=== PATIENT | female | born 1955 | race Two or more races ===

== ENCOUNTER 2021-04-07 17:09 | Emergency (ER) | payer OTHER ==
[~2021-04-07] VITALS: Ht 154.9 cm; Wt 72.6 kg
--- NOTE | 2021-04-07 18:30 | NUR ---
SPOKE TO CHRISTINA-GENERAL OPERATIONS MANAGER AT [facility]. PT WAS DC YESTERDAY DUE TO BEHAVIORAL ISSUES WITH OTHER RESIDENTS. MD GUDINO
--- NOTE | 2021-04-07 19:05 | NUR ---
RAPID COVID SWAB DONE AND SENT TO LAB
[2021-04-08] MEDS ORDERED: ACETAMINOPHEN ES 500 MG TABLET ONE (02:18)
[2021-04-08] MEDS ORDERED: ACETAMINOPHEN ES 500 MG TABLET PO ONE (02:30)
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
--- NOTE | 2021-04-08 12:07 | NUR ---
"FRANCISCO offered pt. the following resources: Year-round shelters: [facility] [place] [address] [place] [address] ; [facility] [address] [place] [address]; [facility] [address] [facility] [address] Winter Shelters: SPA 2 | [facility] ChurcProvider: [facility] Address: Confidential (call for location ) Population Served: Coed # of Beds: 57 SPA 4 | [facility] Provider: [facility] Address: [address] [facility] [address] # of Beds: 49 Population Served: Coed SPA 6 | [facility] Provider: [facility] Last Address: [address] [facility] [address] # of Beds: 49 Population Served: [place] [facility]ial Provider: Laryr Espinal ORIndira Address: [address] [facility] [address] # of Beds: 20 Population Served: Women RONI Facility Provider: Home at Last Address: [address] [facility] [address] # of Beds: 30 Population Served: Women SPA 8 | [facility] Provider: Ruth of [place] Address: [address] [facility] [address] # of Beds: 65 Population Served: Coed Hygiene: [facility]: [address] [place] ; [place] [facility] [address] [facility] ; [facility] [address] Celso [address] . Food Resources: [place] [facility] at [facility]- [address] [place]; Meet Each Need with Dignity ([facility]) [address] [facility] [place]; [facility] Food [facility] [address] [facility]; [facility] [address] [facility]. Mental Health resources provided: [facility] [address] [place], [place] [address] ; [facility] [address], [place] [address] ; [facility] [address] [place] [address] ; [facility] [address] [place], [place] [id number] Healthcare Clinics: [facility] [address] [facility], [address] [place]. [place] ; [facility] [address] [place] [address]; [facility] [address] [place] [address] [phone]) [phone] Counseling--Outpatient [facility] [address], [place] [address] (Specializes in in-depth psychotherapy for emotional distress: anxiety, depression, interpersonal conflicts, life transitions, childhood abuse) [facility] [address] [place] [address] (Assist with solving problem marital difficulties, separation & divorce, aging parents, & grief, chronic & terminal illness) [facility] [address] [place] [address] (Deal with loss & grief, anxiety, marital difficulties) Homebound/Mental Health Services [address] [facility], [address] [place] [address] (Provide in-home mental services to people who are incapable of leaving their homes) [facility] Elder[facility] Senior Service/Resource Center [address] [place] [address] [facility] [address] [facility]. [place], [place] [id number] PSYCHIATRIC OUTPATIENT SERVICES [facility] Partial Hospitalization and Intensive Outpatient Program (Managed Care and [place] Only)[address] [facility] [phone] [facility] Partial Hospitalization and Outpatient [address] [place], [place] [phone] CELSO HENRIQUE [facility] [address] [place], [place] [phone] [facility] Partial Hospitalization and Outpatient Wmhomja[address] Em[address] [facility] Celso Greene, [phone] Substance Abuse resources provided included: [facility] Substance Abuse Self-Helpline ([facility]) ; [facility] [address] [facility] [place] [address] ; [facility] [address] [facility] [address] ; [facility] [address] [facility] [phone] ; [facility]ically [facility] [address] [facility] [phone] ; [facility] [address] [facility] [phone] ; [facility] [address] [facility] [phone] ; [facility] Substance Abuse Helpline([facility])-[facility] ; [facility] ; [facility] [place]; [facility] [place]; [facility] [place]; [facility] Celso Castillohenrique; [facility]; [facility]; [facility] Wilfred; [facility]. Peter Hawley; Alcoholics Anonymous -sfv; Gosia ; Marijuana Anonymous -SFV; Narcotics Anonymous www.[email or web address];"
--- NOTE | 2021-04-08 14:53 | NUR ---
THERAPY TECHNICIAN AT PT'S BEDSIDE
--- NOTE | 2021-04-08 16:04 | NUR ---
Per [facility], labs are needed for pending asmission. Nursing to fax to [phone]
--- NOTE | 2021-04-08 16:30 | NUR ---
URINE COLLECTED AND SENT TO THE LAB
--- NOTE | 2021-04-08 16:42 | NUR ---
FAMILY MANAGER AT PT'S BEDSIDE
[2021-04-08 16:58] LABS: BASOPHILS # (AUTO) 0.1 K/uL (0.0-0.2); BASOPHILS % (AUTO) 1.3 % (0.0-2.0); EOSINOPHILS % (AUTO) 2.8 % (0.0-6.0); HEMATOCRIT 38 % (33-45); HEMOGLOBIN 12.1 g/dL (11.5-14.8); LYMPHOCYTES # (AUTO) 2.6 K/uL (0.8-4.8); LYMPHOCYTES % (AUTO) 48.6 % (20.0-44.0); MEAN CORPUSCULAR HGB CONC 32 g/dl (31.0-36.0); MEAN CORPUSCULAR VOLUME 71 fL (82-100); MONOCYTES # (AUTO) 0.5 K/uL (0.1-1.30); MONOCYTES % (AUTO) 8.6 % (2.0-12.0); NEUTROPHILS % (AUTO) 38.7 % (43.0-81.0); PLATELET COUNT (AUTO) 238 K/uL (150-450); RED BLOOD CELL COUNT(AUTO) 5.43 MIL/uL (4.0-5.2); WHITE BLOOD COUNT (AUTO) 5.3 K/uL (4.3-11.0)
[2021-04-08 17:16] LABS: CALCIUM, SERUM 9.4 mg/dL (8.5-10.1); CARBON DIOXIDE 29 mmol/L (21-32); CHLORIDE 99 mmol/L (98-107); CREATININE 0.7 mg/dL (0.6-1.3); GLUCOSE 130 mg/dL (74-106); POTASSIUM 3.8 mmol/L (3.5-5.1); SODIUM SERUM 136 mmol/L (136-145); UREA NITROGEN, BLOOD 19 mg/dL (7-18)
[2021-04-08 17:37] LABS: BILIRUBIN,URINE NEGATIVE (NEGATIVE); COLOR,URINE YELLOW (YELLOW); LEUKOCYTE ESTERASE ,URINE LARGE (NEGATIVE); NITRITE, URINE NEGATIVE (NEGATIVE); PH,URINE 5.5 (5.0-8.0); PROTEIN,URINE NEGATIVE (NEGATIVE); UGLUCOSE NEGATIVE (NEGATIVE); UROBILINOGEN,URINE 0.2 EU/dL (0.2)
[2021-04-08 18:16] LABS: BACTERIA,URINE 4+ /HPF (None Seen); WBC,URINE 21-50 /HPF (0-3)
[2021-04-08 18:54] LABS: ALANINE AMINOTRANSFERASE 27 U/L (12-78); ALBUMIN 3.7 g/dL (3.4-5.0); ALKALINE PHOSPHATASE 101 U/L (46-116); ASPARTATE AMINOTRANSFERASE 20 U/L (15-37); BILIRUBIN,DIRECT 0.2 mg/dL (0.0-0.2); BILIRUBIN,TOTAL 0.8 mg/dL (0.2-1.0); TOTAL PROTEIN, SERUM 8.2 g/dL (6.4-8.2)
[2021-04-08 19:19] LABS: ACETAMINOPHEN < 2 ug/ml (10-30); ALCOHOL, BLOOD < 3 mg/dL (0-0)
[2021-04-08] MEDS ORDERED: CEPHALEXIN MONOHYDRATE 500 MG CAPSULE PO ONE ×2 (19:30→19:48)
[2021-04-08 20:06] LABS: EOSINOPHILS % (MANUAL) 1 % (0-4); LYMPHOCYTES % (MANUAL) 44 % (16-48); MONOCYTES % (MANUAL) 8 % (0-11.0); NEUTROPHILS % (MANUAL) 47 (42-76)
--- NOTE | 2021-04-09 00:25 | NUR ---
Patient is resting comfortably in bed with eyes closed. Easily aroused. VSS
--- NOTE | 2021-04-09 04:45 | NUR ---
Accepted at [facility] Ramona under Dr. Knutson. [phone] for report
--- NOTE | 2021-04-09 04:48 | NUR ---
Report given to BEVERLY Hood for zahida at the [facility]
--- NOTE | 2021-04-09 07:31 | NUR ---
REPORT GIVEN TO [employer]AL MOCKUP MAKER GOING TO [facility] NATALIE.
[2021-04-09 07:32] VITALS: BP 117/58
== END 2021-04-09 07:33 ==
LOC: ER 17:11
DX: F32.A Depression, unspecified (principal); G89.21 Chronic pain due to trauma; M25.512 Pain in left shoulder; R45.851 Suicidal ideations; Z59.01 Sheltered homelessness; N39.0 Urinary tract infection, site not specified; Z20.822 Contact with and (suspected) exposure to COVID-19
CPT/HCPCS: 36415; 80048; 80076; 80143; 80307; 80320; 81001; 85007; 85025; 87086; 87426; 99285; C9803; G0480

== ENCOUNTER 2021-05-31 22:52 | Emergency (ER) | payer OTHER ==
[~2021-05-31] VITALS: Ht 154.9 cm; Wt 72.6 kg
--- NOTE | 2021-05-31 23:08 | NUR ---
ARAM FROM A [facility]AS STATION. TO ER BED 14. AAOX4. NOT IN RESP DISTRESS, BREATHING EVEN AND UNLABORED. TALKING IN FULL SENTENCES. BROUGHT IN FOR LIP AND TONGUE SWELLING STARTED THIS MORNING WHICH IS INTERMITENT PER PT. UPON TRIAGE NO NOTED SWELLING. PT SATTING @ 100%. PT STATES TAHT SHE IS TAKING SOME MEDS BUT DOES NOT KNOW WHICH MEDICATIONS SHE IS TAKING. PT WAS DISCHARGED FROM A SNF. AWAITING MD FOR EVAL.
[2021-05-31] MEDS ORDERED: diphenhydrAMINE HCL 25 MG CAPSULE ONE (23:43)
[2021-05-31] MEDS ORDERED: FAMOTIDINE (20 MG) 20 MG TABLET ONE (23:43)
[2021-05-31] MEDS ORDERED: ONDANSETRON 4 MG TAB.RAPDIS ONE (23:43)
[2021-05-31] MEDS ORDERED: predniSONE 20 MG TABLET ONE (23:43)
[2021-06-01] MEDS ORDERED: predniSONE 10 MG TABLET PO ONE
[2021-06-01] MEDS ORDERED: ONDANSETRON 4 MG TAB.RAPDIS PO ONE
[2021-06-01] MEDS ORDERED: FAMOTIDINE (20 MG) 20 MG TABLET PO ONE
[2021-06-01] MEDS ORDERED: diphenhydrAMINE HCL 50 MG CAPSULE PO ONE
[2021-06-01] MEDS ORDERED: LORA10CA PO (00:58)
[2021-06-01] MEDS ORDERED: FAMO20TA8 PO (00:58)
--- NOTE | 2021-06-01 01:25 | NUR ---
Patient discharged to home in stable condition. Written and verbal after care instructions given. Patient verbalizes understanding of instruction.
[2021-06-01 01:26] VITALS: BP 110/70
== END 2021-06-01 01:26 | disposition home or self-care (01) ==
LOC: ER 22:54
DX: K14.9 Disease of tongue, unspecified (principal); T42.6X5A Adverse effect of other antiepileptic and sedative-hypnotic drugs, initial encounter; I10 Essential (primary) hypertension; E11.9 Type 2 diabetes mellitus without complications; M19.90 Unspecified osteoarthritis, unspecified site; F20.9 Schizophrenia, unspecified; F17.210 Nicotine dependence, cigarettes, uncomplicated; F12.90 Cannabis use, unspecified, uncomplicated; Z59.00 Homelessness unspecified; Z79.899 Other long term (current) drug therapy; Y92.89 Other specified places as the place of occurrence of the external cause
CPT/HCPCS: 99284; J7512 ×2; Q0162; Q0163

== ENCOUNTER 2021-06-08 23:18 | Emergency (ER) | payer OTHER ==
[~2021-06-08] VITALS: Ht 154.9 cm; Wt 72.6 kg
[~2021-06-08 23:18] MED LIST: FAMO20TA8 PO; LORA10CA PO
[2021-06-08 23:47] VITALS: BP 138/71
[2021-06-09] MEDS ORDERED: IBUP-1490 PO (00:26)
[2021-06-09] MEDS ORDERED: CEPH500T PO (00:26)
[2021-06-09] MEDS ORDERED: NITR-84 PO (00:26)
[2021-06-09] MEDS ORDERED: IBUPROFEN 600 MG TABLET PO ONE (00:30)
[2021-06-09] MEDS ORDERED: CEFTRIAXONE 1 G VIAL IM ONE (00:30)
[2021-06-09] MEDS ORDERED: NITROFURANTOIN/MONOHYDRATE MACROCRYSTALS 100 MG CAPSULE PO ONE (00:30)
[2021-06-09] MEDS ORDERED: LIDOCAINE /MPF 1% VIAL 5 ML VIAL ONE (00:31)
[2021-06-09] MEDS ORDERED: NITROFURANTOIN/MONOHYDRATE MACROCRYSTALS 100 MG CAPSULE ONE (00:31)
[2021-06-09] MEDS ORDERED: CEFTRIAXONE 1 G VIAL ONE (00:31)
[2021-06-09] MEDS ORDERED: IBUPROFEN 600 MG TABLET ONE (00:32)
== END 2021-06-09 00:47 | disposition home or self-care (01) ==
LOC: ER 23:18
DX: N30.90 Cystitis, unspecified without hematuria (principal); F17.210 Nicotine dependence, cigarettes, uncomplicated; M19.90 Unspecified osteoarthritis, unspecified site; R60.0 Localized edema; I10 Essential (primary) hypertension; F20.9 Schizophrenia, unspecified; F12.90 Cannabis use, unspecified, uncomplicated; Z59.00 Homelessness unspecified; Z79.899 Other long term (current) drug therapy
CPT/HCPCS: 96372; 99283; 99406; J0696; J3490

== ENCOUNTER 2021-07-30 20:01 | Emergency (ER) | payer OTHER ==
[~2021-07-30] VITALS: Ht 165.1 cm; Wt 54.4 kg
[~2021-07-30 20:01] MED LIST changes: +CEPH500T PO; +IBUP-1490 PO; +NITR-84 PO
--- NOTE | 2021-07-30 20:20 | NUR ---
TO ER BED 14. ARAM FROM THE STREETS FOR GENERALIZED BODY PAIN X4 DAYS. PT CONNECTED TO MONITOR. NOT IN RESPIRATORY DISTRESS. CHANGED INTO GOWN. PROVIDED WARM BLANKETS. AWAITING MD ADORNO
[2021-07-30 21:13] LABS: BASOPHILS # (AUTO) 0.1 K/uL (0.0-0.2); BASOPHILS % (AUTO) 1.1 % (0.0-2.0); EOSINOPHILS % (AUTO) 1.4 % (0.0-6.0); HEMATOCRIT 33 % (33-45); HEMOGLOBIN 10.5 g/dL (11.5-14.8); LYMPHOCYTES # (AUTO) 2.2 K/uL (0.8-4.8); LYMPHOCYTES % (AUTO) 34.2 % (20.0-44.0); MEAN CORPUSCULAR HGB CONC 32 g/dl (31.0-36.0); MEAN CORPUSCULAR VOLUME 69 fL (82-100); MONOCYTES # (AUTO) 0.5 K/uL (0.1-1.30); MONOCYTES % (AUTO) 8.5 % (2.0-12.0); NEUTROPHILS # (AUTO) 3.5 K/uL (1.8-8.9); NEUTROPHILS % (AUTO) 54.8 % (43.0-81.0); PLATELET COUNT (AUTO) 239 K/uL (150-450); RED BLOOD CELL COUNT(AUTO) 4.82 MIL/uL (4.0-5.2); WHITE BLOOD COUNT (AUTO) 6.4 K/uL (4.3-11.0)
[2021-07-30 21:24] LABS: CALCIUM, SERUM 9.1 mg/dL (8.5-10.1); CARBON DIOXIDE 29 mmol/L (21-32); CHLORIDE 101 mmol/L (98-107); CREATININE 0.9 mg/dL (0.6-1.3); GLUCOSE 133 mg/dL (74-106); POTASSIUM 3.5 mmol/L (3.5-5.1); SODIUM SERUM 136 mmol/L (136-145); UREA NITROGEN, BLOOD 24 mg/dL (7-18)
[2021-07-30 21:28] LABS: ACETAMINOPHEN < 0 ug/ml (10-30); ALANINE AMINOTRANSFERASE 13 U/L (12-78); ALBUMIN 3.2 g/dL (3.4-5.0); ALCOHOL, BLOOD < 3 mg/dL (0-0); ALKALINE PHOSPHATASE 96 U/L (46-116); ASPARTATE AMINOTRANSFERASE 10 U/L (15-37); BILIRUBIN,DIRECT 0.1 mg/dL (0.0-0.2); BILIRUBIN,TOTAL 0.5 mg/dL (0.2-1.0); TOTAL PROTEIN, SERUM 6.9 g/dL (6.4-8.2)
[2021-07-30 22:46] LABS: BILIRUBIN,URINE NEGATIVE (NEGATIVE); COLOR,URINE YELLOW (YELLOW); LEUKOCYTE ESTERASE ,URINE MODERATE (NEGATIVE); NITRITE, URINE NEGATIVE (NEGATIVE); PH,URINE 5.5 (5.0-8.0); PROTEIN,URINE NEGATIVE (NEGATIVE); UGLUCOSE NEGATIVE (NEGATIVE); UROBILINOGEN,URINE 0.2 EU/dL (0.2)
--- NOTE | 2021-07-31 04:10 | NUR ---
PATIENT AMBULATES WITH STEADY GAIT TO RESTROOM AND BACK TO BED.
[2021-07-31] MEDS ORDERED: ACETAMINOPHEN 325 MG TABLET PO ONE ×2 (04:30→21:30)
[2021-07-31] MEDS ORDERED: ACETAMINOPHEN 325 MG TABLET ONE ×2 (04:38→21:22)
--- NOTE | 2021-07-31 06:24 | NUR ---
COVID SWAB COLLECTED SENT TO LAB
--- NOTE | 2021-07-31 06:24 | NUR ---
COVID SWAB DONE AND SENT TO LAB
[2021-07-31 06:36] LABS: BACTERIA,URINE Few /HPF (None Seen)
[2021-07-31] MEDS ORDERED: CEPH500C2 PO (07:01)
--- NOTE | 2021-07-31 08:45 | NUR ---
REFAXED CLINICALS TO [facility] WITH CO[facility] RESULT (-) NEGATIVE.
--- NOTE | 2021-07-31 09:31 | NUR ---
CALLED [facility] NEED TO BE REFAXED
--- NOTE | 2021-07-31 09:32 | NUR ---
CALLED [facility] AWAITING FEEDBACK FROM ZAVALLA AND VN PER SHIELA
--- NOTE | 2021-07-31 09:48 | NUR ---
REFAXCED CLINICALS TO [facility]
--- NOTE | 2021-07-31 12:09 | NUR ---
AWAITING FEEDBACK FROM NURSING MANAGER INTERFACE
[2021-07-31] MEDS ORDERED: CEPHALEXIN MONOHYDRATE 500 MG CAPSULE PO ONE ×2 (12:30→12:48)
--- NOTE | 2021-07-31 18:10 | NUR ---
CALLED [facility] PT WILL BE GOING TO [facility] AWAITING FEEDBACK PER BRANNON.
--- NOTE | 2021-08-01 00:25 | NUR ---
Request still on review upon follow up call with
--- NOTE | 2021-08-01 05:15 | NUR ---
STILL AWAITING FOR AN AVAILABLE BED ACCORDING TO EDUARD FROM [facility]
--- NOTE | 2021-08-01 05:21 | NUR ---
PT WAS INFORMED THAT THERE IS STILL NO AVAILABLE BED D/T HIGH CAPACITY. PT VERBALIZED THAT SHE CANT WAIT ANY LONGER AND WOULD LIKE TO JUST GO. UPON ASKING PT IF SHE HAS ANY THOUGHTS OF HARMING HERSELF SHE DENIED THE SHE IS SUICIDAL. PT IS ON STABLE CONDITION. ALL BELAONGINGS GIVEN BACK. MADE AWARE.
[2021-08-01 05:55] VITALS: BP 146/81
== END 2021-08-01 05:30 | disposition home or self-care (01) ==
LOC: ER 20:08
DX: R45.851 Suicidal ideations (principal); Z59.00 Homelessness unspecified; Z20.822 Contact with and (suspected) exposure to COVID-19; Z53.29 Procedure and treatment not carried out because of patient's decision for other reasons; N39.0 Urinary tract infection, site not specified; F20.9 Schizophrenia, unspecified; I10 Essential (primary) hypertension; E11.9 Type 2 diabetes mellitus without complications; M19.90 Unspecified osteoarthritis, unspecified site; Z88.6 Allergy status to analgesic agent
CPT/HCPCS: 36415; 80048-TC; 80076-TC; 81001; 85025-TC; 87086-TC; G0480

== ENCOUNTER 2021-11-13 12:49 | Emergency (ER) | payer OTHER ==
[~2021-11-13] VITALS: Ht 154.9 cm; Wt 72.6 kg
[~2021-11-13 12:49] MED LIST changes: +CEPH500C2 PO
--- NOTE | 2021-11-13 12:51 | NUR ---
BIB 878 FROM BUS STOP C/O ABODMINAL PAIN X1WEEK 10/10 ON PAIN SCALE WITH DIARRHEA X3DAY AND R SHOULDER PAINX 2DAYS. A&OX4. VITALS ARE WITHIN NORMAL LIMITS. AWAITING MD ADORNO.
--- NOTE | 2021-11-13 13:54 | NUR ---
JJ COLLECTED AND SENT
[2021-11-13 14:00] LABS: ALBUMIN 3.1 g/dL (3.4-5.0); BASOPHILS % (AUTO) 0.5 % (0.0-2.0); BILIRUBIN,DIRECT 0.2 mg/dL (0.0-0.2); CALCIUM, SERUM 8.6 mg/dL (8.5-10.1); CREATININE 0.7 mg/dL (0.6-1.3); EOSINOPHILS % (AUTO) 1.2 % (0.0-6.0); HEMATOCRIT 37 % (33-45); HEMOGLOBIN 11.7 g/dL (11.5-14.8); LYMPHOCYTES # (AUTO) 1.4 K/uL (0.8-4.8); LYMPHOCYTES % (AUTO) 18.2 % (20.0-44.0); MEAN CORPUSCULAR HGB CONC 32 g/dl (31.0-36.0); MEAN CORPUSCULAR VOLUME 70 fL (82-100); MONOCYTES # (AUTO) 0.6 K/uL (0.1-1.30); MONOCYTES % (AUTO) 7.5 % (2.0-12.0); NEUTROPHILS # (AUTO) 5.5 K/uL (1.8-8.9); NEUTROPHILS % (AUTO) 72.6 % (43.0-81.0); PLATELET COUNT (AUTO) 225 K/uL (150-450); POTASSIUM 3.4 mmol/L (3.5-5.1); RED BLOOD CELL COUNT(AUTO) 5.33 MIL/uL (4.0-5.2); TOTAL PROTEIN, SERUM 7.2 g/dL (6.4-8.2); WHITE BLOOD COUNT (AUTO) 7.5 K/uL (4.3-11.0)
[2021-11-13 15:12] LABS: BILIRUBIN,URINE NEGATIVE (NEGATIVE); COLOR,URINE YELLOW (YELLOW); LEUKOCYTE ESTERASE ,URINE LARGE (NEGATIVE); NITRITE, URINE NEGATIVE (NEGATIVE); PROTEIN,URINE NEGATIVE (NEGATIVE); UGLUCOSE NEGATIVE (NEGATIVE); UROBILINOGEN,URINE 0.2 EU/dL (0.2)
[2021-11-13 15:41] LABS: BACTERIA,URINE 2+ /HPF (None Seen); SQUAMOUS EPITHELIAL CELL,UR 0-2 /HPF (None Seen); WBC,URINE 51-80 /HPF (0-3)
[2021-11-13] MEDS ORDERED: ONDA4TAB5 PO (16:01)
[2021-11-13] MEDS ORDERED: CEPH500C2 PO (16:01)
[2021-11-13] MEDS ORDERED: ACETAMINOPHEN 325 MG TABLET ONE (16:55)
[2021-11-13] MEDS ORDERED: ACETAMINOPHEN 325 MG TABLET PO ONE (17:00)
--- NOTE | 2021-11-13 17:16 | NUR ---
homeless waiver signed. Patient discharged to home in stable condition. Written and verbal after care instructions given. Patient verbalizes understanding of instruction.
[2021-11-13 17:18] VITALS: BP 125/77
== END 2021-11-13 17:18 | disposition home or self-care (01) ==
LOC: ER 12:52
DX: N39.0 Urinary tract infection, site not specified (principal); R19.7 Diarrhea, unspecified; R10.9 Unspecified abdominal pain; E87.6 Hypokalemia; E88.09 Other disorders of plasma-protein metabolism, not elsewhere classified; I10 Essential (primary) hypertension; J44.9 Chronic obstructive pulmonary disease, unspecified; M19.90 Unspecified osteoarthritis, unspecified site; F20.9 Schizophrenia, unspecified; E11.9 Type 2 diabetes mellitus without complications; F17.200 Nicotine dependence, unspecified, uncomplicated; Z59.00 Homelessness unspecified; Z86.69 Personal history of other diseases of the nervous system and sense organs; Z88.8 Allergy status to other drugs, medicaments and biological substances; Z79.899 Other long term (current) drug therapy
CPT/HCPCS: 36415; 80048-TC; 80076-TC; 81001; 83690-TC; 85025-TC; 87086-TC

== ENCOUNTER 2023-02-01 09:24 | Emergency (ER) | payer OTHER ==
[~2023-02-01] VITALS: Ht 154.9 cm; Wt 72.6 kg
[~2023-02-01 09:24] MED LIST changes: +ONDA4TAB5 PO
[2023-02-01 09:54] LABS: BASOPHILS # (AUTO) 0.1 K/uL (0.0-0.2); BASOPHILS % (AUTO) 1.4 % (0.0-2.0); EOSINOPHILS # (AUTO) 0.1 K/uL (0.0-0.7); HEMATOCRIT 34 % (33-45); HEMOGLOBIN 10.7 g/dL (11.5-14.8); LYMPHOCYTES # (AUTO) 2.1 K/uL (0.8-4.8); LYMPHOCYTES % (AUTO) 44.6 % (20.0-44.0); MEAN CORPUSCULAR HEMOGLOBIN 22 PG (26.0-33.0); MEAN CORPUSCULAR HGB CONC 32 g/dl (31.0-36.0); MEAN CORPUSCULAR VOLUME 69 fL (82-100); MONOCYTES # (AUTO) 0.3 K/uL (0.1-1.30); MONOCYTES % (AUTO) 6.9 % (2.0-12.0); NEUTROPHILS # (AUTO) 2.1 K/uL (1.8-8.9); NEUTROPHILS % (AUTO) 44.1 % (43.0-81.0); PLATELET COUNT (AUTO) 214 K/uL (150-450); RED BLOOD CELL COUNT(AUTO) 4.93 MIL/uL (4.0-5.2); RED CELL DISTRIBUTION WIDTH 16.7 % (11.5-15.0); WHITE BLOOD COUNT (AUTO) 4.7 K/uL (4.3-11.0)
[2023-02-01 10:05] LABS: CALCIUM, SERUM 9.5 mg/dL (8.5-10.1); CREATININE 0.6 mg/dL (0.6-1.3); POTASSIUM 3.6 mmol/L (3.5-5.1)
[2023-02-01 10:11] LABS: ALBUMIN 3.3 g/dL (3.4-5.0); BILIRUBIN,DIRECT 0.1 mg/dL (0.0-0.2); BILIRUBIN,TOTAL 0.4 mg/dL (0.2-1.0); TOTAL PROTEIN, SERUM 7.1 g/dL (6.4-8.2)
[2023-02-01 11:20] LABS: ANISOCYTOSIS 1+; EOSINOPHILS % (MANUAL) 4 % (0-4); LYMPHOCYTES % (MANUAL) 44 % (16-48); MONOCYTES % (MANUAL) 6 % (0-11.0); NEUTROPHILS % (MANUAL) 46 (42-76); PLATELET ESTIMATE ADEQUATE
[2023-02-01] MEDS ORDERED: FAMO20TA8 PO (11:21)
[2023-02-01] MEDS ORDERED: ONDA4TAB5 PO (11:21)
[2023-02-01] MEDS ORDERED: ACET-2605 PO (11:21)
[2023-02-01] MEDS ORDERED: FAMOTIDINE (20 MG) 20 MG TABLET PO ONE (11:30)
[2023-02-01] MEDS ORDERED: ONDANSETRON 4 MG TAB.RAPDIS SL ONE (11:30)
[2023-02-01] MEDS ORDERED: ACETAMINOPHEN 325 MG TABLET PO ONE (11:30)
[2023-02-01] MEDS ORDERED: ACETAMINOPHEN 325 MG TABLET ONE (11:33)
[2023-02-01] MEDS ORDERED: FAMOTIDINE (20 MG) 20 MG TABLET ONE (11:33)
[2023-02-01] MEDS ORDERED: ONDANSETRON 4 MG TAB.RAPDIS ONE (11:33)
[2023-02-01 11:55] LABS: APPEARANCE,URINE CLEAR (CLEAR); BILIRUBIN,URINE NEGATIVE (NEGATIVE); BLOOD, URINE NEGATIVE Ery/uL (NEGATIVE); COLOR,URINE YELLOW (YELLOW); KETONES,URINE NEGATIVE (NEGATIVE); LEUKOCYTE ESTERASE ,URINE NEGATIVE (NEGATIVE); NITRITE, URINE NEGATIVE (NEGATIVE); PROTEIN,URINE NEGATIVE (NEGATIVE); UGLUCOSE NEGATIVE (NEGATIVE); UROBILINOGEN,URINE 0.2 EU/dL (0.2)
[2023-02-01 12:50] VITALS: BP 128/75; TEMP 98; O2SAT 99
== END 2023-02-01 12:51 | disposition home or self-care (01) ==
LOC: ER 09:26
DX: K43.9 Ventral hernia without obstruction or gangrene (principal); K57.92 Diverticulitis of intestine, part unspecified, without perforation or abscess without bleeding; M19.90 Unspecified osteoarthritis, unspecified site; R10.13 Epigastric pain; I10 Essential (primary) hypertension; J44.9 Chronic obstructive pulmonary disease, unspecified; E11.9 Type 2 diabetes mellitus without complications; F20.9 Schizophrenia, unspecified; F17.200 Nicotine dependence, unspecified, uncomplicated; Z79.899 Other long term (current) drug therapy; Z60.2 Problems related to living alone; Z59.00 Homelessness unspecified
CPT/HCPCS: 99284; 74176; 85025; 80048; 83690; 80076; 81003; 36415; 85007; Q0162